=== PATIENT | female | born 1960 | race Caucasian/White ===

== ENCOUNTER → 2022-07-16 16:49 | Outpatient (CLI) | payer OTHER, SELFPAY ==
--- NOTE | ~2022-07-16 | XR_ITS ---
EXAMINATION: XR knee LT 3V DATE: 07/16/2022 17:13 INDICATION: Left knee pain TECHNIQUE: Four views of the left knee were obtained. COMPARISON: None. FINDINGS: Alignment is normal. No fracture or osteochondral lesion. There is moderate tricompartmenta l osteoarthritis of the knee. Surgical changes are noted. No joint effusion/synovitis. Soft tissues are unremarkable. IMPRESSION: 1. Moderate tricompartmental osteoarthritis of the knee without acute findings. Reviewed, dictated and finalized at location L.
--- NOTE | ~2022-07-16 | XR_ITS ---
EXAMINATION: XR knee RT 3V DATE: 07/16/2022 17:16 INDICATION: Right knee pain TECHNIQUE: Three views of the right knee were obtained. COMPARISON: 10/02/2018 FINDINGS: Alignment is normal. No fracture or osteochondral lesion. There is moderate osteoarthritis of the medial compartment and mild osteoarthritis of the lateral patellofemoral compartments. There i s at least partial resection of the fibula which is not visualized. No joint effusion/synovitis. Sof t tissues are unremarkable. IMPRESSION: 1. Tricompartmental osteoarthritis, moderate in the medial compartment, without acute osseous abnorma lity. Reviewed, dictated and finalized at location L. IMPRESSION: 1. Tricompartmental osteoarthritis, moderate in the medial compartment, without acute osseous abnormality.
== END ==
PROVIDERS: PCP Physician Assistant; Visit Provider Physician Assistant
DX: M17.0 Bilateral primary osteoarthritis of knee (principal); M25.561 Pain in right knee; M25.562 Pain in left knee
CPT/HCPCS: 73562

== ENCOUNTER 2022-12-19 08:55 | Emergency (ER) | payer OTHER, SELFPAY ==
[2022-12-19 09:07] VITALS: BP 129/82; PULSE 67; RESP 16; TEMP 36.4; O2SAT 96
[2022-12-19 09:10] VITALS: BP 129/82; PULSE 67; RESP 16; TEMP 36.4; O2SAT 96
--- NOTE | 2022-12-19 09:15 | ED.EAR ---
HPI - Ear Problem General Chief complaint: Ear Stated complaint: lt earache Time Seen by Provider: 12/19/22 09:10 Source: patient and RN notes reviewed Mode of arrival: ambulatory Limitations: no limitations History of Present Illness HPI Narrative: Patient presents today complaining of left ear pain and muffling since yesterday. States her pain is more external and denies pain deep into the ear. She currently rates her pain 2/10 and has tried no [id number] medication for symptoms prior to arrival. She denies any additional URI symptoms to include cough, congestion, rhinorrhea, sore throat. States she does have seasonal allergies for which he takes Zyrtec and Flonase. She has been swimming 3-4 days ago. Related Data Home Medications Medication Instructions Recorded Confirmed amlodipine 5 mg tablet 5 mg PO DAILY 12/19/22 12/19/22 budesonide-formoterol HFA 80 1 inh inhalation ONCE 12/19/22 12/19/22 mcg-4.5 mcg/actuation aerosol inhaler (Symbicort) cetirizine 10 mg tablet (Zyrtec) 10 mg PO DAILY 12/19/22 12/19/22 metoprolol tartrate 25 mg tablet 25 mg PO BID 12/19/22 12/19/22 omeprazole 40 mg capsule,delayed 40 mg PO DAILY 12/19/22 12/19/22 release Allergies Allergy/AdvReac Type Severity Reaction Status Date / Time Sulfa (Sulfonamide Allergy Mild Unknown Verified 12/19/22 09:20 Antibiotics) Review of Systems Review of Systems: CONSTITUTIONAL: Denies body aches, fever, chills, or sweats. EYES: Denies visual changes, redness, or discharge. ENT: Denies rhinorrhea, congestion, sore throat. + left ear pain and muffling CARDIOVASCULAR: Denies chest pain, palpitations, or edema. RESPIRATORY: Denies cough or dyspnea. GASTROINTESTINAL: Denies abdominal pain, nausea, vomiting, or diarrhea. GENITOURINARY: Denies dysuria or hematuria. SKIN: Denies rash, itching, or wounds. MUSCULOSKELETAL: Denies back pain, joint pain, or myalgia. NEUROLOGIC: Denies headache, numbness, tingling, or weakness. PSYCH: Denies depression or anxiety. [facility] Past Medical History Medical History (Updated 09/06/23 @ 09:21 by Pham Atkins, DIRECTOR OF CAREER SERVICES, ) Hypertension Peripheral neuropathy Comments At time of signature, I have reviewed and agree with nursing past medical, surgical, social and family history unless otherwise noted. Please see nursing chart for further information. There is no relevant family history pertinent to the presenting complaint Exam Narrative: GENERAL: Well-appearing, well-nourished, and in no acute distress. HEAD: Normocephalic, atraumatic. EYES: EOMI. No redness or drainage. Conjunctivae normal. ENT: Mucous membranes pink and moist. Right ear normal. Left ear with tragal tenderness and mild erythema with moderate edema of the canal. Left TM normal. NECK: Normal AROM. CHEST: No respiratory distress. EXTREMITIES: Normal range of motion. No edema. SKIN: Warm, dry, no rash. Capillary refill normal. Normal skin turgor. NEURO: No focal deficits. Alert and oriented x3. Gait steady. PSYCH: Normal affect. No signs of depression or anxiety. Course Course Level of Care: Express Care Visit Vital Signs Vital signs: Vital Signs Temperature 97.6 F 12/19/22 09:07 Pulse Rate 67 12/19/22 09:07 Respiratory Rate 16 12/19/22 09:07 Blood Pressure 129/82 12/19/22 09:07 Pulse Oximetry 96 12/19/22 09:07 Oxygen Delivery Room Air 12/19/22 09:07 Temperature 97.6 F 12/19/22 09:10 Pulse Rate 67 12/19/22 09:10 Respiratory Rate 16 12/19/22 09:10 Blood Pressure 129/82 12/19/22 09:10 Pulse Oximetry 96 12/19/22 09:10 Oxygen Delivery Room Air 12/19/22 09:10 Reviewed. Pt has been instructed to follow up with her PCP regarding her elevated blood pressure today. Medical Decision Making MDM Narrative Medical decision making narrative: Exam consistent with otitis externa. At this time, patient does not require wick. Prescription for Ciprodex sent to pharmacy
== END 2022-12-19 09:24 | disposition home or self-care (01) ==
PROVIDERS: Emergency Provider Nurse Practitioner; PCP Physician Assistant
DX: H60.502 Unspecified acute noninfective otitis externa, left ear (principal); I10 Essential (primary) hypertension; G62.9 Polyneuropathy, unspecified
CPT/HCPCS: 99213; G0463

== ENCOUNTER 2024-10-02 16:34 | Outpatient (CLI) | payer OTHER, SELFPAY ==
--- NOTE | ~2024-10-02 | XR_ITS ---
HISTORY: Pain in left arm COMPARISON: None TECHNIQUE: 2 views of the soft tissues of the neck were performed FINDINGS: Normal delineation of the pharynx, larynx and trachea. Paravertebral soft tissues demonstrate normal width. No evidence of radiopaque foreign bodies or gas within the soft tissues. Alignment within the cervical spine is preserved. Significant degenerative disease is noted, with osteophyte formation, disc space narrowing, endplate changes and facet arthropathy. The cervical spine is visualized only on to the level of the superior endplate of C7. Straightening of the normal curvature is present. No acute fracture is noted. IMPRESSION: Severe degenerative disease within the visualized portion of the cervical spine without acute fracture. Reviewed, dictated and finalized at location A. IMPRESSION: Severe degenerative disease within the visualized portion of the c ervical spine without acute fracture.
--- NOTE | ~2024-10-02 | XR_ITS ---
HISTORY: Pain in left arm COMPARISON: None TECHNIQUE: 3 views of the left shoulder FINDINGS: No acute fracture. The glenohumeral and acromioclavicular joint space is maintained The visualized portion of the adjacent left lung is clear. The humeral head is well seated within the glenoid fossa. IMPRESSION: No acute fracture or anterior dislocation. Reviewed, dictated and finalized at location A.
== END 2024-10-02 16:35 | disposition home or self-care (01) ==
LOC: MICIMG 16:38
PROVIDERS: PCP Physician Assistant; Visit Provider Physician Assistant
DX: M79.602 Pain in left arm (principal); M50.30 Other cervical disc degeneration, unspecified cervical region
CPT/HCPCS: 70360; 73030